=== PATIENT | female | born 1985 | race American Indian/Alaskan Native ===

== ENCOUNTER 2019-12-07 17:47 | Emergency (ER) | payer SELFPAY ==
[2019-12-07 19:45] VITALS: BP 159/90
--- NOTE | 2019-12-07 19:45 | Emergency Department Report ---
Chief Complaint: Dental/Oral Stated Complaint: RT SIDE TOOTHACHE/PAIN Time Seen by Provider: 12/07/19 19:41 - HPI History of Present Illness: This is a 34 y.o. F. that presents to the ER with right sided dental pain since last night. Patient is using mouthwash, oragel, and NSAIDs with no change in symptoms. Denies difficulty swallowing, fever, chills, sore throat, facial swelling, or headache. - ROS Review of Systems: ENT: dental pain All other symptoms reviewed and no complaints - Exam Vital Signs: Vital Signs 12/07/19 17:51 Temperature 98.9 F Pulse Rate 79 Respiratory 18 Rate Blood Pressure 173/113 O2 Sat by Pulse 100 Oximetry Physical Exam: General Limitations: No Limitations General appearance: alert, in no apparent distress -HEENT HEENT exam: Present: #31 dark brown dental caries lateral, ttp, gingival swelling, uvula midline, no exudate - Respiratory Respiratory exam: Present: normal lung sounds bilaterally. Absent: respiratory distress, wheezes, rales, rhonchi - Cardiovascular Cardiovascular Exam: Present: regular rate, normal rhythm, normal heart sounds. Absent: systolic murmur, diastolic murmur, rubs, gallop - GI/Abdominal GI/Abdominal exam: Present: soft, normal bowel sounds. Absent: tenderness, distended, guarding, rebound, rigid - Extremities Exam Extremities exam: Present: normal inspection - Neurological Exam Neurological exam: Present: alert, oriented X3 - Psychiatric Psychiatric exam: Present: normal affect, normal mood - Skin Skin exam: Present: warm, dry, intact, normal color. Absent: rash MSE screening note: Focused history and physical exam performed. Due to findings the following was ordered: ED Medical Decision Making - Medical Decision Making This is a 34 y.o. F. that presents to the ER with dental pain since last night. There is a dark brown dental caries lateral #31, ttp, gingival swelling, uvula midline, no exudate. Vitals are stable. Patient in no acute distress. Patient is not immunosuppressed, no tooth fracture, avulsion, or bleeding socket. Start antibiotics, analgesics, and peridex mouthwash. Discharged home stable. Patient given return precautions. Given list of dental clinics for follow up. ED Disposition for MSE Clinical Impression: Dental caries, Toothache Disposition: TO HOME OR SELFCARE Is pt being admited?: No Condition: Stable Instructions: Dental Caries (ED), Toothache (ED) Prescriptions: Chlorhexidine Mouthwash [Peridex] 15 ml MM BID #1 bottle Amoxicillin [Trimox CAP] 500 mg PO Q8H #21 capsule traMADoL [Ultram 50 MG tab] 50 mg PO Q6HR PRN #10 tablet PRN Reason: Pain Referrals: [facility] [Outside] - 3-5 Days [facility] [Outside] - 3-5 Days [facility] [Outside] - 3-5 Days Time of Disposition: 19:57
== END 2019-12-07 20:03 | disposition home or self-care (01) ==
LOC: ED 17:47
DX: K08.89 Other specified disorders of teeth and supporting structures (principal); K02.9 Dental caries, unspecified
CPT/HCPCS: 99282

== ENCOUNTER 2020-10-06 22:56 | Inpatient (IN) | payer OTHER ==
[2020-10-07 00:28] LABS: Basophils % (Auto) 0.1 % (0.0-1.8); Eosinophils % (Auto) 0.2 % (0.0-4.3); Hematocrit 38.9 % (30.3-42.9); Hemoglobin 12.9 gm/dl (10.1-14.3); Lymphocytes # (Auto) 2.6 K/mm3 (1.2-5.4); Lymphocytes % (Auto) 18.9 % (13.4-35.0); Mean Corpuscular HGB Conc 33 % (30-34); Mean Corpuscular Volume 88 fl (79-97); Monocytes # (Auto) 0.8 K/mm3 (0.0-0.8); Monocytes % (Auto) 5.7 % (0.0-7.3); Platelet Count 228 K/mm3 (140-440); Red Blood Count 4.43 M/mm3 (3.65-5.03); Red Cell Distribution Width 15.2 % (13.2-15.2)
[2020-10-07 00:41] LABS: Alanine Aminotransferase 9 units/L (7-56); Albumin 3.6 g/dL (3.9-5); Blood Urea Nitrogen 10 mg/dL (7-17); Calcium 9.4 mg/dL (8.4-10.2); Hemolysis Index 4
[2020-10-07 00:43] LABS: BUN/Creatinine Ratio 20
[2020-10-07 01:39] LABS: Bilirubin,Urine NEG (Negative); Blood,Urine SM (Negative); Color,Urine Yellow (Yellow); Mucus,Urine FEW /HPF; Urobilinogen,Urine < 2.0 mg/dL (<2.0)
[2020-10-07] MEDS ORDERED: MINERAL OIL 30 ML ORAL LIQD PO PRN (05:45)
[2020-10-07] MEDS ORDERED: ACETAMINOPHEN 325 MG TAB PO PRN ×2 (05:45→11:00)
[2020-10-07] MEDS ORDERED: fentaNYL 100 MCG/2 ML INJ IV PRN (05:45)
[2020-10-07] MEDS ORDERED: ONDANSETRON 4 MG/2 ML INJ IV PRN ×2 (05:45→11:00)
[2020-10-07] MEDS ORDERED: BUTORPHANOL 2 MG/1 ML INJ IV PRN ×2 (05:45)
[2020-10-07] MEDS ORDERED: LACTATED RINGERS 1,000 ML IV SCH (05:45)
--- NOTE | 2020-10-07 06:02 | Ultrasound Report ---
OB Ultrasound HISTORY: , pain. TECHNIQUE: Grayscale and color imaging performed. COMPARISON: None FINDINGS: Single viable intrauterine gestation with cephalic presentation. Heart rate is 4.1 cm. Plac enta is posterior. Heart rate is 152 beats removed. Cervix is 2.9 cm. Overall EGA is 31 weeks and 4 d ays with delivery date of 12/05/2020. weight is 1873 g with nothing acute. IMPRESSION: Single viable intrauterine gestation as above. Signer Name: Mitchell Bruce MD Signed: 10/07/2020 5:58 AM Workstation Name: [id number]
--- NOTE | 2020-10-07 06:03 | History and Physical Report ---
<JANUSZ MCCLAIN - Last Filed: 10/07/20 06:46> History of Present Illness Date of examination: 10/07/20 Chief complaint: Admission from the ER, Patient did not know she was , contractions Oligohydramnios on US done in ED History of present illness: 35yo NO Prental care, did not know she was US done in ED: oligohydramnios at 4.1cm Angu[place], cephalic Posterior Placenta, Grade 3 FHT 162 Cervical length 2.9cm EFW 1873gms, Gestational Age 31+4.7 weeks ALYSE 12/05/2019 Past History Past Medical History: no pertinent history Past Surgical History: COLLAR TURNER/uterine surgery, section Medications and Allergies Allergies Allergy/AdvReac Type Severity Reaction Status Date / Time No Known Allergies Allergy Verified 10/06/20 23:22 Home Medications Medication Instructions Recorded Confirmed Last Taken Type Amoxicillin [Trimox CAP] 500 mg PO Q8H #21 capsule 12/07/19 Unknown Rx Chlorhexidine Mouthwash [Peridex] 15 ml MM BID #1 bottle 12/07/19 Unknown Rx traMADoL [Ultram 50 MG tab] 50 mg PO Q6HR PRN #10 tablet 12/07/19 Unknown Rx Active Meds: Active Medications Acetaminophen (Acetaminophen 325 Mg Tab) 650 mg PO Q4H PRN PRN Reason: Pain, Mild (1-3) Butorphanol Tartrate (Butorphanol 2 Mg/1 Ml Inj) 1 mg IV Q2H PRN PRN Reason: Pain, Moderate(4-6) LABOR PAIN Butorphanol Tartrate (Butorphanol 2 Mg/1 Ml Inj) 2 mg IV Q2H PRN PRN Reason: Pain , Severe (7-10) Fentanyl (Fentanyl 100 Mcg/2 Ml Inj) 100 mcg IV Q2H PRN PRN Reason: Pain,Severe (7-10) LABOR PAIN Lactated Ringer's (Lactated Ringers) 1,000 mls @ 125 mls/hr IV DIRECT CLEMENT Mineral Oil (Mineral Oil 30 Ml Oral Liqd) 30 ml PO QHS PRN PRN Reason: Constipation Ondansetron HCl (Ondansetron 4 Mg/2 Ml Inj) 4 mg IV Q8H PRN PRN Reason: Nausea And Vomiting Review of Systems All systems: negative (no OB complaints) - Physical Exam Breasts: Positive: deferred Cardiovascular: Regular rate Abdomen: Positive: normal appearance Genitourinary (Female): Positive: normal external genitalia Deep Tendon Reflex Grade: Normal +2 Results Result Diagrams: 10/06/20 23:30 10/07/20 Unknown Abnormal lab results 10/06/20 10/07/20 10/07/20 Range/Units 23:30 Unknown Unknown WBC 14.0 H (4.5-11.0) K/mm3 Seg Neutrophils % 75.1 H (40.0-70.0) % Seg Neutrophils # 10.5 H (1.8-7.7) K/mm3 Creatinine 0.5 L (0.6-1.2) mg/dL Glucose 114 H (65-100) mg/dL Alkaline Phosphatase 167 H (35-129) units/L Albumin 3.6 L (3.9-5) g/dL HCG, Quant 1950 H (0-4) mIU/mL All other labs normal. Assessment and Plan admission for oligohydramnios no NC previous c/sectionx3 Steroids Magnesium sulfate APA Labs, panel, drug abuse panel Maternal/ well being reassuring at bedside Rosanne Mcclain MD <BAL KAY JR - Last Filed: 10/07/20 10:19> History of Present Illness Date of admission: 10/07/20 05:45 Medications and Allergies Active Meds: Active Medications Acetaminophen (Acetaminophen 325 Mg Tab) 650 mg PO Q4H PRN PRN Reason: Pain, Mild (1-3) Betamethasone Acet/Betameth SodPhos (Betamet Acet/Betamet Na Ph 6 Mg/Ml Inj 5 Ml Mdv) 12 mg IM Q24H CLEMENT Stop: 10/08/20 07:01 Butorphanol Tartrate (Butorphanol 2 Mg/1 Ml Inj) 1 mg IV Q2H PRN PRN Reason: Pain, Moderate(4-6) LABOR PAIN Butorphanol Tartrate (Butorphanol 2 Mg/1 Ml Inj) 2 mg IV Q2H PRN PRN Reason: Pain , Severe (7-10) Fentanyl (Fentanyl 100 Mcg/2 Ml Inj) 100 mcg IV Q2H PRN PRN Reason: Pain,Severe (7-10) LABOR PAIN Lactated Ringer's (Lactated Ringers) 1,000 mls @ 125 mls/hr IV DIRECT CLEMENT Magnesium Sulfate (Magnesium Sulfate 40gm/1000ml) 40 gm in 1,000 mls @ 50 mls/hr IV DIRECT CLEMENT Mineral Oil (Mineral Oil 30 Ml Oral Liqd) 30 ml PO QHS PRN PRN Reason: Constipation Ondansetron HCl (Ondansetron 4 Mg/2 Ml Inj) 4 mg IV Q8H PRN PRN Reason: Nausea And Vomiting - Vital Signs Vital signs: Vital Signs Pulse BP 82 187/108 10/07/20 07:08 10/07/20 07:08 Temp Pulse Resp BP Pulse Ox 75 138/71 81 L 10/07/20 08:25 10/07/20 07:15 10/07/20 08:25 Results Result Diagrams: 10/07/20 08:25 10/07/20 Unknown Abnormal lab results 10/06/20 10/07/20 10/07/20 Range/Units 23:30 08:25 Unknown WBC 14.0 H 19.9 H (4.5-11.0) K/mm3 Seg Neutrophils % 75.1 H (40.0-70.0) % Seg Neutrophils # 10.5 H (1.8-7.7) K/mm3 Creatinine 0.5 L (0.6-1.2) mg/dL Glucose 114 H (65-100) mg/dL Alkaline Phosphatase 167 H (35-129) units/L Albumin 3.6 L (3.9-5) g/dL HCG, Quant (0-4) mIU/mL 10/07/20 Range/Units Unknown WBC (4.5-11.0) K/mm3 Seg Neutrophils % (40.0-70.0) % Seg Neutrophils # (1.8-7.7) K/mm3 Creatinine (0.6-1.2) mg/dL Glucose (65-100) mg/dL Alkaline Phosphatase (35-129) units/L Albumin (3.9-5) g/dL HCG, Quant 1950 H (0-4) mIU/mL All other labs normal. Assessment and Plan Patient found to be in active labor at 7 cm with decelerations to the 60s. Plan made to transfer patient to the operating room for possible emergent section. Patient found to be complete in the operating room, however given persistent decelerations with the station of the head at 0, the decision was made to proceed with emergent section. See operative report for remainder of care.
[2020-10-07] MEDS ORDERED: MAGNESIUM SULFATE 4 GM/100 ML BAG IV ONE (06:44)
[2020-10-07] MEDS ORDERED: MAGNESIUM SULFATE 40GM/1000ML 40 GM/1,000 ML BAG IV SCH (07:00)
[2020-10-07] MEDS ORDERED: BETAMET ACET/BETAMET NA PH 6 MG/ML INJ 5 ML MDV IM SCH (07:00)
[2020-10-07] MEDS ORDERED: BICITRA ORAL LIQD 30ML ONE (08:07)
[2020-10-07] MEDS ORDERED: FAMOTIDINE 20 MG/2 ML INJ IV ONE (08:08)
[2020-10-07] MEDS ORDERED: ceFAZolin/Water 2 GM/20 ML 2 GM/20 ML SYRINGE IV ONE (08:08)
[2020-10-07] MEDS ORDERED: METOCLOPRAMIDE 10 MG/2 ML INJ ONE (08:08)
[2020-10-07] MEDS ORDERED: propofoL 200 MG/20 ML VIAL IV ONE (08:29)
[2020-10-07] MEDS ORDERED: SUCCINYLCHOLINE CHLORIDE 200 MG/10 ML INJ MDV ONE (08:29)
[2020-10-07] MEDS ORDERED: SODIUM CHLORIDE 0.9% IRR 1,500 ML BOTTLE IR ONE (08:40)
[2020-10-07] MEDS ORDERED: WATER FOR IRRIG STERILE 1,500 ML BOTTLE IR ONE (08:40)
[2020-10-07] MEDS ORDERED: ceFAZolin/STERILE WATER 2 GM/20 ML SYRINGE IV ONE (08:45)
[2020-10-07] MEDS ORDERED: dexAMETHasone 20 MG/5 ML VIAL ONE (08:46)
[2020-10-07] MEDS ORDERED: ONDANSETRON 4 MG/2 ML INJ ONE (08:46)
[2020-10-07 08:54] LABS: Hematocrit 37.8 % (30.3-42.9); Hemoglobin 12.7 gm/dl (10.1-14.3); Mean Corpuscular HGB Conc 34 % (30-34); Mean Corpuscular Volume 88 fl (79-97); Platelet Count 215 K/mm3 (140-440); Red Blood Count 4.31 M/mm3 (3.65-5.03); Red Cell Distribution Width 14.9 % (13.2-15.2)
[2020-10-07] MEDS ORDERED: miSOPROStol 200 MCG TAB ONE (08:57)
[2020-10-07] MEDS ORDERED: METHYLERGONOVINE MALEATE 0.2 MG/ML VIAL IM ONE (08:57)
[2020-10-07] MEDS ORDERED: OXYTOCIN DRIP 30,000 MILLIUNITS/500 ML BAG IV ONE (08:58)
[2020-10-07] MEDS ORDERED: PHENYLEPHRINE/NS 1,000 MCG/10 ML SYRINGE (OR USE) IV ONE (08:58)
[2020-10-07] MEDS ORDERED: ROCURONIUM 50 MG/5 ML INJ IV ONE (08:58)
[2020-10-07] MEDS ORDERED: OXYTOCIN 10 UNIT/1 ML INJ ONE (08:58)
[2020-10-07] MEDS ORDERED: BUPIVACAINE/PF (0.5%) 5 MG/1 ML 30 ML VIAL INFILTRATI ONE (09:04)
[2020-10-07] MEDS ORDERED: KETOROLAC 30 MG/1 ML INJ ONE (09:11)
[2020-10-07] MEDS ORDERED: KETAMINE/STERILE WATER 50 MG/ML SYRINGE ONE (09:20)
[2020-10-07] MEDS ORDERED: GLYCOPYRROLATE 0.4 MG/2 ML INJ ONE (09:55)
[2020-10-07] MEDS ORDERED: NEOSTIGMINE 10MG/10 ML INJ MDV ONE (09:55)
--- NOTE | 2020-10-07 10:24 | Procedure Note ---
OB Delivery Note - Delivery Date of Delivery: 10/07/20 Surgeon: BAL KAY JR Estimated blood loss: other (800cc) - Section Preop diagnosis: repeat , arrest of descent, nonreassuring FHR tracing Postop diagnosis: same section procedure: section, repeat low transverse Disposition: PACU Complications: none Narrative: Indication: 35-year-old at unknown gestation (labor and delivery ultrasound consistent with 31 weeks 4-day gestation) without care complicated by history of prior x3, tobacco use, marijuana use presenting for repeat secondary to active labor and non-reassuring heart tones emergently. Findings: Normal uterus, tubes and ovaries. Clear fluid. No nuchal cord. Breech extraction. Delivery of female infant at 0854 Apgars 4/9 2740 g 19 inches EBL 800 cc IVF 1300 cc UOP 100 cc Procedure: Patient was taken to the operating room prepped and draped in the usual sterile fashion. Pfannenstiel skin incision was made and carried down to the underlying fascia. Fascia was incised and the incision was distended bilaterally. Rectus fascia was dissected off the rectus muscle superiorly and inferiorly. Peritoneum was identified and entered. Peritoneal incision extended superiorly and inferiorly. The bladder was visualized. The bladder blade was placed. Uterine hysterotomy incision in a classical fashion was made and extended bilaterally with bandage scissors. The baby was delivered in the breech fashion starting with the legs, then the trunk, then bilateral arms, then the head that was briefly entrapped in the lower uterine segment that was released after extension of the uterine incision inferiorly. The cord was cut and clamped and handed off to the team. The placenta was delivered spontaneously and sent to pathology. The uterus was exteriorized and cleared of all clots and debris. Uterine incision was closed with a 0 Vicryl in a running locked fashion in 4 layers. Good hemostasis was noted. The urine was noted to be clear. Uterus, tubes, and ovaries were returned to the abdominal cavity. Bilateral gutters were cleared and the abdomen and pelvis were irrigated. Good hemostasis noted and Surgicel was applied to the incisional base. Attention was directed towards the rectus fascia which was reapproximated with 0 PDS in a running fashion. The subcutaneous tissue was irrigated and re-approximated with 2-0 Vicryl in a running fashion. Skin was closed with a 3-0 Monocryl in a subcuticular fashion. The procedure was completed and the patient tolerated the procedure well. All instruments and lap counts were correct x2. - Infant A at 1 minute: 4 at 5 minutes: 9 Infant Gender: Female
[2020-10-07] MEDS ORDERED: LANOLIN/ZINC/DIMETHICONE (LANSINOH) 7 GM TP PRN (11:00)
[2020-10-07] MEDS ORDERED: NALOXONE 0.4 MG/1 ML INJ IV PRN (11:00)
[2020-10-07] MEDS ORDERED: PROMETHAZINE 25 MG RECT SUPP PR PRN (11:00)
[2020-10-07] MEDS ORDERED: WITCH HAZEL/ GLYCERIN PAD TP PRN (11:00)
[2020-10-07] MEDS ORDERED: HYDROCORTISONE 25 MG RECTAL SUPP PR PRN (11:00)
[2020-10-07] MEDS ORDERED: SIMETHICONE 80 MG CHEW TAB PO PRN (11:00)
[2020-10-07] MEDS ORDERED: MORPHINE 4 MG/1 ML INJ IV PRN (11:00)
[2020-10-07] MEDS ORDERED: OXYTOCIN DRIP 30 UNITS/500 ML BAG IV SCH (11:00)
[2020-10-07] MEDS ORDERED: KETOROLAC 30 MG/1 ML INJ IV PRN (11:00)
--- NOTE | 2020-10-07 11:09 | Anesthesia Consultation ---
Anesthesia Consult and Med Hx Date of service: 10/07/20 - Airway Anesthetic Teeth Evaluation: Good ROM Head & Neck: Adequate Mental/Hyoid Distance: Adequate Mallampati Class: Class II Intubation Access Assessment: Probably Good - Pulmonary Exam CTA: Yes - Cardiac Exam Cardiac Exam: RRR - Pre-Operative Health Status ASA Pre-Surgery Classification: ASA3, Emergency Proposed Anesthetic Plan: General
--- NOTE | 2020-10-07 11:09 | Anesthesia Day of Surgery ---
Anesthesia Day of Surgery - Day of Surgery Patient Examined: Yes Patient H&P Reviewed: No Patient is NPO: No
--- NOTE | 2020-10-07 11:10 | Progress Note ---
Regional Anesthesia Block - Regional Anesthesia Block Start Time: 10:40 Stop Time: 10:45 Performed By:: ROBERT OLVERA
[2020-10-07 12:10] LABS: Hepatitis C Virus Antibody Non-Reactive (NonReactive)
[2020-10-07] MEDS: oxyCODONE /ACETAMINOPHEN 5-325MG TAB PO PRN ×2 (14:51→21:25)
[2020-10-07 16:10] LABS: Bacteria,Urine 1+ /HPF (Negative); Bilirubin,Urine NEG (Negative); Blood,Urine LG (Negative); Color,Urine Yellow (Yellow); Mucus,Urine 2+ /HPF; Urobilinogen,Urine < 2.0 mg/dL (<2.0)
[2020-10-07 16:15] LABS: Amphetamine Screen,Urine Negative; Benzodiazepines Screen,Urine Negative; Cannabinoid Screen,Urine Negative; Cocaine Screen,Urine Negative; Methadone Screen,Urine Negative
[2020-10-07 16:29] LABS: Opiate Screen,Urine Positive
[2020-10-07] MEDS: ceFAZolin/NS 1 GM/50 ML 1 GM/50 ML BAG IV SCH (17:00)
--- NOTE | 2020-10-07 20:18 | Post Anesthesia Evaluation ---
- Post Anesthesia Evaluation Patient Participated: Yes Airway Patent: Yes Stable Respiratory Function: Yes Nausea/Vomiting: No Temp > 96.8F: Yes Pain Manageable: Yes Adequeate Hydration: Yes Anesthesia Complications: No Block Receding Appropriately: Yes
[2020-10-07] MEDS: D5W/LACTATED RINGERS 1,000 ML IV SCH (21:27)
[2020-10-07] MEDS ORDERED: MAGNESIUM HYDROXIDE (MOM) ORAL LIQD UDC PO PRN (22:00)
[2020-10-07] MEDS ORDERED: SENNOSIDES 8.6 MG TAB PO PRN (22:00)
[2020-10-08] MEDS: ceFAZolin/NS 1 GM/50 ML 1 GM/50 ML BAG IV SCH ×2 (00:14→08:34)
[2020-10-08 00:44] LABS: Hematocrit 34.6 % (30.3-42.9); Hemoglobin 11.3 gm/dl (10.1-14.3)
[2020-10-08] MEDS: oxyCODONE /ACETAMINOPHEN 5-325MG TAB PO PRN ×3 (03:24→18:21)
[2020-10-08] MEDS: D5W/LACTATED RINGERS 1,000 ML IV SCH (08:07)
[2020-10-08] MEDS: IBUPROFEN 800 MG TAB PO PRN (08:34)
--- NOTE | 2020-10-08 12:36 | Progress Note ---
Assessment and Plan A: POD #1 Elevated Blood Pressure Maternal Obesity No Care P: Follow Routine PostOp Orders Started Labetolol 100mg PO BID Subjective - Subjective Date of service: 10/08/20 Patient reports: appetite normal, voiding normally, pain well controlled, flatus, ambulating normally, other (Denies HAs, Visual Changes, N&V, and epigastic pain. Denies history of CHTN; but Admits to Family history of CHTN. Denies History of Preeclampsia) [place]: in NICU, bottle feeding Objective - Vital Signs Latest vital signs: Vital Signs Temp Pulse Resp BP BP Pulse Ox 10/08/20 08:23 97.7 F 72 18 170/90 96 10/08/20 06:27 98.0 F 64 18 151/83 97 10/08/20 03:24 20 10/08/20 00:37 98.3 F 66 20 149/70 99 10/07/20 21:25 20 10/07/20 21:18 98.2 F 71 18 133/78 95 10/07/20 16:25 98.2 F 72 18 162/82 97 10/07/20 12:53 98.1 F 65 19 159/87 97 Intake and Output 10/07/20 10/08/20 10/08/20 22:59 06:59 14:59 Intake Total 790 1050 Output Total 500 600 Balance 290 1050 -600 Intake: IV 70 1050 ANCEF/NS 1 GM/50 ML 1 gm 50 50 In 50 ml @ 100 mls/hr IV Q8H CLEMENT Rx#:[id number] D5lr 1,000 ml @ 125 mls/ 1000 hr IV DIRECT CLEMENT Rx#: [id number] Right Hand 20 Oral 480 Intake, Free Water 240 Output: Urine 500 600 Indwelling Catheter 500 Void 600 Other: Total, Intake Amount 240 Total, Output Amount 200 600 Estimated Blood Loss 800 - Exam Breasts: Present: normal Cardiovascular: Present: Regular rate Lungs: Present: Clear to auscultation, Normal air movement Abdomen: Present: normal appearance, soft, normal bowel sounds Uterus: Present: normal, firm, fundal height below umbilicus Extremities: Present: edema (+2 bilateral pedal edema) Incision: Present: dry, dressed - Labs Labs: Abnormal lab results 10/07/20 Range/Units 15:34 Urine WBC (Auto) 14.0 H (0.0-6.0) /HPF
[2020-10-09] MEDS: oxyCODONE /ACETAMINOPHEN 5-325MG TAB PO PRN (04:32)
[2020-10-09] MEDS: IBUPROFEN 800 MG TAB PO PRN ×2 (09:25→22:51)
--- NOTE | 2020-10-09 15:06 | Progress Note ---
Assessment and Plan POD # 2 A: S/P repeat LTCS P: Continue routine pp care Encourage ambulation D/C home tomm if stable. - Patient Problems (1) delivery delivered Current Visit: Yes Status: Acute Subjective - Subjective Date of service: 10/09/20 Principal diagnosis: S/P repeat LTCS Patient reports: appetite normal, voiding normally, pain well controlled, flatus, ambulating normally : doing well, in NICU Objective - Vital Signs Latest vital signs: Vital Signs Temp Pulse Resp BP Pulse Ox 10/09/20 13:46 97.8 F 87 20 141/83 98 10/09/20 07:58 98.5 F 77 20 148/76 97 10/09/20 06:35 97.9 F 79 18 124/64 97 10/09/20 04:32 20 10/09/20 02:00 98.1 F 88 18 135/67 99 10/08/20 22:53 89 155/94 10/08/20 22:46 98.4 F 90 18 155/94 98 10/08/20 16:58 98.1 F 95 H 18 133/72 99 Intake and Output 10/09/20 10/09/20 10/09/20 06:59 14:59 22:59 Intake Total 480 Balance 480 Intake: Intake, Free Water 480 Other: # Voids Void 1 - Exam Breasts: Present: normal Abdomen: Present: normal appearance, soft, normal bowel sounds Vulva: both: normal Uterus: Present: normal, firm, fundal height below umbilicus Extremities: Present: normal Incision: Present: normal, dry, intact
--- NOTE | 2020-10-09 15:15 | Discharge Summary ---
Providers - Providers Date of Admission: 10/07/20 05:45 Date of discharge: 10/10/20 Attending physician: JANUSZ MCCLAIN MD 10/07/20 05:47 Consult to Physician [CONS] Routine Comment: Consulting Provider: JANUSZ MCCLAIN Physician Instructions: Reason For Exam: APA consult for oligohydramnios 10/07/20 18:25 Consult to Case Management [CONS] Routine Services Needed at Discharge: Dragline Mechanic Notified:: [phone] Phone number called:: [phone] Was contact made?: No Time called:: 15:00 Primary care physician: JANUSZ MCCLAIN MD Hospitalization Reason for admission: active labor Delivery: Procedure: repeat low transverse Episiotomy: none Laceration: none Incision: normal, dry, intact Other procedures: none complications: other (elevated b/ps) Discharge diagnosis: delivery baby: female Hospital course: Pt was admitted from ER to L&D @ 31.4wks with uc and oligo. She was pos for opiates and stated she didn't even know she was preg. She had a repeat LTCS w/o complications. During her pp stay she dev htn and was started on Labetalol. Pt's b/p stablized and she was d/cd home in stable condition w/o complaints. SS and DFACS was notified. Condition at discharge: Stable Disposition: DC- TO HOME OR SELFCARE - Discharge Diagnoses (1) delivery delivered Status: Acute Plan - Discharge Medications Prescriptions: Ibuprofen [Motrin 800 MG tab] 800 mg PO Q6H PRN #30 tablet PRN Reason: Pain, Mild (1-3) oxyCODONE /ACETAMINOPHEN [Percocet 5/325 mg] 1 tab PO Q6H PRN #30 tablet PRN Reason: Pain, Moderate (4-6) - Provider Discharge Summary Additional instructions: [] Smoking cessation referral if applicable(refer to patient education folder for contact #) [] Refer to [facility] Booklet Call your doctor immediately for: * Fever > 100.5 * Heavy vaginal bleeding ( >1 pad per hour) * Severe persistent headache * Shortness of breath * Reddened, hot, painful area to leg or breast * Drainage or odor from incision. * Keep incision clean and dry at all times and follow doctor's instructions regarding bathing/showering - Follow up plan Follow up: BAL KAY JR, MD [Staff Physician] - 14 Days Forms: [facility] Discharge Summary
--- NOTE | 2020-10-09 19:03 | Event Note ---
Date: 10/09/20 Nurse called and reported pt's b/p of 151/95. Nurse states pt's b/p is always elevated when its time for her to give the pt her b/p meds. Pt denied hsu, visual problems, or epigastric pain. Pt's Labetalol was increased to 200 mg po bid. POC was notified of plan. Will hold d/c until b/ps are stabilized.
[2020-10-10] MEDS: IBUPROFEN 800 MG TAB PO PRN ×2 (10:55→21:04)
--- NOTE | 2020-10-10 15:43 | Progress Note ---
Assessment and Plan A: /postop day 3 S/P repeat LTCS. No care. Elevated blood pressures; on Labetalol 200 mg po BID. P: Monitor BPs. Repeat CBC, CMP. Continue Labetalol 200 mg po BID. Anticipate discharge home tomorrow if patient continues to do well. Consulted re: this patient. Subjective - Subjective Date of service: 10/10/20 Principal diagnosis: /postop day 3 S/P repeat LTCS; elevated blood pressures Patient reports: appetite normal, voiding normally, pain well controlled, flatus, bowel movement, ambulating normally, no dizzy ambulation, no nauseated [place]: doing well, in NICU Objective - Vital Signs Latest vital signs: Vital Signs Temp Pulse Resp BP BP Pulse Ox 10/10/20 14:41 97.9 F 73 18 135/79 100 10/10/20 09:10 98.1 F 79 18 141/77 96 10/10/20 00:46 98.8 F 92 H 18 114/56 94 10/09/20 22:45 98.6 F 84 161/99 99 10/09/20 16:25 98.9 F 83 20 151/95 100 Intake and Output 10/09/20 10/10/20 10/10/20 23:59 07:59 15:59 Intake Total 200 480 840 Balance 200 480 840 Intake: Oral 200 120 480 Intake, Free Water 360 360 Other: Total, Intake Amount 200 120 240 # Voids Void 1 1 2 # Bowel Movements 2 - Exam Cardiovascular: Present: Regular rate Lungs: Present: Clear to auscultation Abdomen: Present: normal appearance, soft, normal bowel sounds. Absent: distention, tenderness, guarding, rigidity Uterus: Present: normal, firm, fundal height below umbilicus. Absent: bogginess, tenderness Extremities: Present: normal, edema (mild pedal edema bilaterally). Absent: tenderness Incision: Present: normal, dry, intact
[2020-10-10 16:53] LABS: Basophils % (Auto) 0.3 % (0.0-1.8); Eosinophils # (Auto) 0.1 K/mm3 (0.0-0.4); Eosinophils % (Auto) 0.7 % (0.0-4.3); Hemoglobin 9.9 gm/dl (10.1-14.3); Lymphocytes # (Auto) 2.6 K/mm3 (1.2-5.4); Lymphocytes % (Auto) 23.1 % (13.4-35.0); Monocytes # (Auto) 0.4 K/mm3 (0.0-0.8); Monocytes % (Auto) 3.5 % (0.0-7.3)
[2020-10-10 17:00] LABS: Hematocrit 29.7 % (30.3-42.9); Mean Corpuscular HGB Conc 34 % (30-34); Mean Corpuscular Volume 89 fl (79-97); Platelet Count 286 K/mm3 (140-440); Red Blood Count 3.35 M/mm3 (3.65-5.03); Red Cell Distribution Width 14.9 % (13.2-15.2)
[2020-10-10 17:11] LABS: Alanine Aminotransferase 10 units/L (7-56); Blood Urea Nitrogen 5 mg/dL (7-17); Calcium 8.8 mg/dL (8.4-10.2); Hemolysis Index 14
[2020-10-10 17:19] LABS: BUN/Creatinine Ratio 10
[2020-10-10] MEDS ORDERED: FERROUS SULFATE 325 MG TAB PO SCH (18:00)
--- NOTE | 2020-10-10 22:31 | Event Note ---
Date: 10/10/20 Started Augmentin for UTI; C&S pending.
[2020-10-10] MEDS: AMOXICILLIN/K CLAV 500/125MG TAB PO SCH (23:25)
[2020-10-11] MEDS: IBUPROFEN 800 MG TAB PO PRN ×2 (03:23→11:30)
[2020-10-11] MEDS: AMOXICILLIN/K CLAV 500/125MG TAB PO SCH (12:30)
--- NOTE | 2020-10-11 14:09 | Progress Note ---
Assessment and Plan A: /postop day 4 S/P repeat low transverse section. UTI. Hypertension, controlled on Labetalol 200 mg po BID. Anemia (on iron supplementation). P: Discharge patient home today. Discussed with patient in detail /postop discharge instructions and warning signs. Care of incision and activity restrictions discussed with patient. Advised patient to avoid sexual intercourse, lifting, housework, driving, stair climbing, and tub baths (patient may take showers). Advised patient to continue taking her vitamins and iron supplements at home. Advised patient to oyster picker Rx for Labetalol and Cipro at [facility] (called in prior to patient discharge today) and take them exactly as prescribed. Advised patient to follow up at [facility] office in 2 days for BP check. BP warning signs, UTI warning signs, and s/sx of depression discussed with patient. Patient voiced understanding of all instructions. Subjective - Subjective Date of service: 10/11/20 Principal diagnosis: /postop day 4 S/P repeat LTCS; elevated blood pressures Interval history: Urine culture showed psuedomonas. Patient denies flank pain, fever, chills, or N/V. Consulted with Dr. Carson re: UTI and re: patient's BPs. Dr. Carson states OK to discharge patient home on Cipro and Labetalol 200 mg po BID with follow up at [facility] in 2 days for BP check. Patient reports: appetite normal, voiding normally, pain well controlled, flatus, ambulating normally, no dizzy ambulation, no nauseated : doing well, in NICU Objective - Vital Signs Latest vital signs: Vital Signs Temp Pulse Resp BP BP Pulse Ox 10/11/20 07:57 97.7 F 74 18 153/72 96 10/11/20 03:24 98.2 F 84 18 138/70 97 10/11/20 03:23 18 10/10/20 23:35 98.1 F 70 18 149/87 96 10/10/20 21:04 18 10/10/20 21:03 86 153/88 10/10/20 20:02 98.1 F 86 19 153/88 97 10/10/20 16:30 98.2 F 83 20 135/88 10/10/20 14:41 97.9 F 73 18 135/79 100 Intake and Output 10/10/20 10/11/20 10/11/20 23:59 07:59 15:59 Intake Total 120 Balance 120 Intake: Oral 120 Other: Total, Intake Amount 120 # Voids Void 1 - Exam Cardiovascular: Present: Regular rate Lungs: Present: Clear to auscultation Abdomen: Present: normal appearance, soft, normal bowel sounds. Absent: distention, tenderness, guarding, rigidity Uterus: Present: normal, firm, fundal height below umbilicus. Absent: bogginess, tenderness Extremities: Present: normal. Absent: tenderness, edema Incision: Present: normal, dry, intact - Labs Labs: Abnormal lab results 10/10/20 10/10/20 Range/Units 16:15 16:15 WBC 11.4 H (4.5-11.0) K/mm3 RBC 3.35 L (3.65-5.03) M/mm3 Hgb 9.9 L (10.1-14.3) gm/dl Hct 29.7 L (30.3-42.9) % Seg Neutrophils % 72.4 H (40.0-70.0) % Seg Neutrophils # 8.2 H (1.8-7.7) K/mm3 Sodium 136 L (137-145) mmol/L BUN 5 L (7-17) mg/dL Creatinine 0.5 L (0.6-1.2) mg/dL Albumin 3.0 L (3.9-5) g/dL
--- NOTE | 2020-10-11 14:22 | Discharge Summary ---
Providers - Providers Date of Admission: 10/07/20 05:45 Date of discharge: 10/11/20 Attending physician: JANUSZ MCCLAIN MD 10/07/20 05:47 Consult to Physician [CONS] Routine Comment: Consulting Provider: JANUSZ MCCLAIN Physician Instructions: Reason For Exam: APA consult for oligohydramnios 10/07/20 18:25 Consult to Case Management [CONS] Routine Services Needed at Discharge: Veterinary Inspector Notified:: [phone] Phone number called:: [phone] Was contact made?: No Time called:: 15:00 Primary care physician: JANUSZ MCCLAIN MD Hospitalization Reason for admission: labor Delivery: Procedure: repeat low transverse Incision: normal, dry, intact Other procedures: none complications: UTI Discharge diagnosis: delivery baby: female Pertinent studies: Labs Hospital course: Stable hospital course Condition at discharge: Good Disposition: [id number] TO HOME OR SELFCARE - Discharge Diagnoses (1) delivery delivered Status: Acute (2) Anemia Status: Acute Plan - Discharge Medications Prescriptions: Ibuprofen [Motrin 800 MG tab] 800 mg PO Q6H PRN #30 tablet PRN Reason: Pain, Mild (1-3) oxyCODONE /ACETAMINOPHEN [Percocet 5/325 mg] 1 tab PO Q6H PRN #30 tablet PRN Reason: Pain, Moderate (4-6) - Provider Discharge Summary Activity: routine, no sex for 6 weeks, no heavy lifting 4 weeks, no strenuous exercise Diet: routine Instructions: routine Additional instructions: Continue to take Vitamin and iron supplements at home. 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 Follow up at [facility] office in 2 days for BP check. Call your doctor immediately for: * Fever > 100.5 * Heavy vaginal bleeding ( >1 pad per hour) * Severe persistent headache * Shortness of breath * Reddened, hot, painful area to leg or breast * Drainage or odor from incision. * Keep incision clean and dry at all times and follow doctor's instructions regarding bathing/showering - Follow up plan Follow up: BAL KAY JR, MD [Staff Physician] - 48 Hours Forms: [facility] Discharge Summary
[2020-10-11 16:12] VITALS: BP 126/87
== END 2020-10-11 16:30 | disposition home or self-care (01) | DRG 787 ==
LOC: TRG 22:56 → ED 22:56 → TRG 22:56 → APU 10-07 05:28 → TRG 10-07 05:45 → APU 10-07 06:31 → OB 10-07 12:44
PROVIDERS: ADMIT Obstetrics & Gynecology; ATTEND Obstetrics & Gynecology
PROC: 10D00Z1 Extraction of Products of Conception, Low, Open Approach (ICD-10-PCS; principal; 2020-10-07)
DX: O60.14X0 Preterm labor third trimester with preterm delivery third trimester, not applicable or unspecified (principal); O41.03X0 Oligohydramnios, third trimester, not applicable or unspecified; O99.324 Drug use complicating childbirth; O86.20 Urinary tract infection following delivery, unspecified; O76 Abnormality in fetal heart rate and rhythm complicating labor and delivery; O34.211 Maternal care for low transverse scar from previous cesarean delivery; O62.1 Secondary uterine inertia; Z37.0 Single live birth; Z3A.31 31 weeks gestation of pregnancy; Z20.828 Contact with and (suspected) exposure to other viral communicable diseases; O32.1XX0 Maternal care for breech presentation, not applicable or unspecified; O99.334 Smoking (tobacco) complicating childbirth; F17.200 Nicotine dependence, unspecified, uncomplicated; F12.90 Cannabis use, unspecified, uncomplicated; B96.5 Pseudomonas (aeruginosa) (mallei) (pseudomallei) as the cause of diseases classified elsewhere; O99.214 Obesity complicating childbirth; E66.9 Obesity, unspecified; O16.5 Unspecified maternal hypertension, complicating the puerperium; O90.81 Anemia of the puerperium; D64.9 Anemia, unspecified
CPT/HCPCS: 36415; 76805; 80053; 80307; 81001; 84702; 84703; 85014; 85018; 85025; 85027; 86592; 86706; 86762; 86803; 86850; 86900; 86901; 87076; 87086; 87186; 87806; G0378; J0330; J0690; J1100; J1885; J2270; J2370; J2405; J2590; J2704; J2710; J2765; J3490; J7121; U0003

== ENCOUNTER 2021-06-29 17:04 | Emergency (ER) | payer SELFPAY ==
[2021-06-29 18:14] VITALS: BP 132/68
--- NOTE | 2021-06-29 19:54 | Emergency Department Report ---
- General Chief Complaint: Dyspnea/Respdistress Stated Complaint: SOB,CONSTANT HEADACHES Time Seen by Provider: 06/29/21 19:26 Source: patient Mode of arrival: Ambulatory Limitations: No Limitations - History of Present Illness Initial Comments: Patient is a 35-year-old female presents emergency room complaints of shortness of breath that began a week ago. She has associated headache and chills. She denies any fever, vomiting, diarrhea, chest pain, leg swelling, hemoptysis, cough. She denies any known sick contacts or recent travel. She did get vaccinated for COVID-19. No past medical history. No allergies to medications. - Related Data Previous Rx's Medication Instructions Recorded Last Taken Type Amoxicillin [Trimox CAP] 500 mg PO Q8H #21 capsule 12/07/19 Unknown Rx Chlorhexidine Mouthwash [Peridex] 15 ml MM BID #1 bottle 12/07/19 Unknown Rx traMADoL [Ultram 50 MG tab] 50 mg PO Q6HR PRN #10 tablet 12/07/19 Unknown Rx Ibuprofen [Motrin 800 MG tab] 800 mg PO Q6H PRN #30 tablet 10/07/20 Unknown Rx oxyCODONE /ACETAMINOPHEN [Percocet 1 tab PO Q6H PRN #30 tablet 10/07/20 Unknown Rx 5/325 mg] Butalb/Acetaminophen/Caffeine 1 cap PO Q8HR PRN #10 cap 06/29/21 Unknown Rx [Fioricet 50-300-40 mg CAP] guaiFENesin ER [Mucinex ER] 600 mg PO Q12H #14 tablet.er 06/29/21 Unknown Rx Allergies Allergy/AdvReac Type Severity Reaction Status Date / Time No Known Allergies Allergy Verified 10/06/20 23:22 ED Review of Systems ROS: Stated complaint: SOB,CONSTANT HEADACHES Other details as noted in HPI Comment: All other systems reviewed and negative ED Past Medical Hx - Past Medical History Previous Medical History?: No Hx Hypertension: No Hx Diabetes: No Hx Deep Vein Thrombosis: No Hx Renal Disease: No Hx Sickle Cell Disease: No Hx Seizures: No Hx Asthma: No Hx HIV: No - Surgical History Past Surgical History?: Yes Additional Surgical History: x3. left tube removed - Social History Smoking Status: Never Smoker - Medications Home Medications: Home Medications Medication Instructions Recorded Confirmed Last Taken Type Amoxicillin [Trimox CAP] 500 mg PO Q8H #21 capsule 12/07/19 Unknown Rx Chlorhexidine Mouthwash [Peridex] 15 ml MM BID #1 bottle 12/07/19 Unknown Rx traMADoL [Ultram 50 MG tab] 50 mg PO Q6HR PRN #10 tablet 12/07/19 Unknown Rx Ibuprofen [Motrin 800 MG tab] 800 mg PO Q6H PRN #30 tablet 10/07/20 Unknown Rx oxyCODONE /ACETAMINOPHEN [Percocet 1 tab PO Q6H PRN #30 tablet 10/07/20 Unknown Rx 5/325 mg] Butalb/Acetaminophen/Caffeine 1 cap PO Q8HR PRN #10 cap 06/29/21 Unknown Rx [Fioricet 50-300-40 mg CAP] guaiFENesin ER [Mucinex ER] 600 mg PO Q12H #14 tablet.er 06/29/21 Unknown Rx ED Physical Exam - General Limitations: No Limitations General appearance: alert, in no apparent distress - Head Head exam: Present: atraumatic, normocephalic - Eye Eye exam: Present: normal appearance - ENT ENT exam: Present: mucous membranes moist - Respiratory Respiratory exam: Present: normal lung sounds bilaterally. Absent: respiratory distress, wheezes, rales, rhonchi, stridor, chest wall tenderness, accessory muscle use, decreased breath sounds, prolonged expiratory - Cardiovascular Cardiovascular Exam: Present: regular rate, normal rhythm, normal heart sounds. Absent: systolic murmur, diastolic murmur, rubs, gallop - Neurological Exam Neurological exam: Present: alert, oriented X3 - Psychiatric Psychiatric exam: Present: normal affect, normal mood - Skin Skin exam: Present: warm, dry, intact ED Course Vital Signs 06/29/21 18:13 Temperature 98.0 F Pulse Rate 84 Respiratory 18 Rate Blood Pressure 132/68 [Right] O2 Sat by Pulse 98 Oximetry ED Medical Decision Making - Radiology Data Radiology results: report reviewed Ordering Physician: WHITNEY FERNANDO Date of Service: 06/29/21 Procedure(s): XR chest routine 2V Accession Number(s): [id number] cc: WHITNEY FERNANDO Fluoro Time In Minutes: CHEST 2 VIEWS INDICATION / CLINICAL INFORMATION: SOB. COMPARISON: None available. FINDINGS: SUPPORT DEVICES: None. HEART / MEDIASTINUM: No significant abnormality. LUNGS / PLEURA: No significant pulmonary or pleural abnormality. No pneumothorax. ADDITIONAL FINDINGS: No significant additional findings. IMPRESSION: 1. No acute findings. Signer Name: Jabari Strickland MD Signed: 06/29/2021 8:05 PM Workstation Name: [id number] Transcribed By: DT Dictated By: Bry Strickland MD Electronically Authenticated By: Bry Strickland MD Signed Date/Time: 06/29/212004 DD/ 04 TD/TT: - Medical Decision Making Patient is a 35-year-old female presents emergency room complaints of shortness of breath that began a week ago. She has associated headache and chills. She denies any fever, vomiting, diarrhea, chest pain, leg swelling, hemoptysis, cough. She denies any known sick contacts or recent travel. She did get vaccinated for COVID-19. No past medical history. No allergies to medications. Vitals are normal. Abnormality on physical examination as documented in chart. No tachycardia, no hypoxia. PERC criteria negative for PE, PE very unlikely. Chest x-ray: 1. No acute findings. Symptoms likely related to URI. Patient's daughter also has cold-like symptoms. Given prescription for symptomatic relief. Discussed supportive care and symptomatic treatment. Advised patient Please take medication as prescribed. Increase your fluid intake. Follow-up with a primary care doctor for examination. Return to emergency room for any new or worsening symptoms. Critical care attestation.: If time is entered above; I have spent that time in minutes in the direct care of this critically ill patient, excluding procedure time. ED Disposition Clinical Impression: Upper respiratory infection Qualifiers: URI type: unspecified URI Qualified Code(s): J06.9 - Acute upper respiratory infection, unspecified Disposition: HOME / SELF CARE / HOMELESS Is pt being admited?: No Does the pt Need Aspirin: No Condition: Stable Instructions: Viral Respiratory Infection Additional Instructions: Please take medication as prescribed. Increase your fluid intake. Follow-up with a primary care doctor for examination. Return to emergency room for any new or worsening symptoms. Prescriptions: Butalb/Acetaminophen/Caffeine [Fioricet 50-300-40 mg CAP] 1 cap PO Q8HR PRN #10 cap PRN Reason: headache guaiFENesin ER [Mucinex ER] 600 mg PO Q12H #14 tablet.er Referrals: CARBUCCIA,RAVEN, MD [Staff Physician] - 3-5 Days [facility] [Provider Group] - 3-5 Days Time of Disposition: 20:18 Print Language: SWEDISH
--- NOTE | 2021-06-29 20:09 | XRay Report ---
CHEST 2 VIEWS INDICATION / CLINICAL INFORMATION: SOB. COMPARISON: None available. FINDINGS: SUPPORT DEVICES: None. HEART / MEDIASTINUM: No significant abnormality. LUNGS / PLEURA: No significant pulmonary or pleural abnormality. No pneumothorax. ADDITIONAL FINDINGS: No significant additional findings. IMPRESSION: 1. No acute findings. Signer Name: Jabari Strickland MD Signed: 06/29/2021 8:05 PM Workstation Name: [id number]
== END 2021-06-29 20:50 | disposition home or self-care (01) ==
LOC: ED 17:04
DX: J06.9 Acute upper respiratory infection, unspecified (principal); Z98.890 Other specified postprocedural states
CPT/HCPCS: 71046; 99283